=== PATIENT | male | born 1965 | race Two or more races ===

== ENCOUNTER → 2018-03-20 | Day surgery (SDC) | payer OTHER | END | disposition home or self-care (01) | LOC: JRADIR 09:50 | PROC: 02PY03Z Removal of Infusion Device from Great Vessel, Open Approach (ICD-10-PCS; principal; 2018-03-20) | DX: Z45.2 Encounter for adjustment and management of vascular access device (principal) | CPT/HCPCS: 36590 ==

== ENCOUNTER 2018-03-22 10:00 | Emergency (ER) | payer OTHER ==
[2018-03-22 10:40] VITALS: BMI 35.9
--- NOTE | 2018-03-22 10:56 | PDOC ---
Attending Attestation - HPI HPI: 03/22/18 11:40 The patient is a 52 year old male with a significant PMH of lymphoma in remission (s/p last chemo in 2014) and med port removal from right chest (on ) who presents to the emergency department with a rash on the upper chest and right forearm since yesterday. The rash is described as sudden onset and pruritic. Patient endorses minimal relief after drinking milk. The patient denies chest pain, shortness of breath, headache and dizziness. Denies fever, chills, nausea, vomit, diarrhea and constipation. Denies dysuria, frequency, urgency and hematuria. Allergies: NKA Past surgical history: None reported Social history: No reported alcohol, drug, or cigarette use. PCP: Dr. Nolasco <Kirsten Guajardo - Last Filed: 03/22/18 11:40> - Resident Resident Name: Gopi Mendoza - ED Attending Attestation I have performed the following: I have examined & evaluated the patient, The case was reviewed & discussed with the resident, I agree w/resident's findings & plan, Exceptions are as noted - Physicial Exam PE: GENERAL: Awake, alert, and fully oriented, in no acute distress HEAD: No signs of trauma EYES: PERRLA, EOMI, sclera anicteric, conjunctiva clear ENT: Auricles normal inspection, hearing grossly normal, nares patent, oropharynx clear without exudates. Moist mucosa NECK: Normal ROM, supple, no lymphadenopathy, JVD, or masses LUNGS: Breath sounds equal, clear to auscultation bilaterally. No wheezes, and no crackles HEART: Regular rate and rhythm, normal S1 and S2, no murmurs, rubs or gallops ABDOMEN: Soft, nontender, normoactive bowel sounds. No guarding, no rebound. No masses EXTREMITIES: Normal range of motion, no edema. No clubbing or cyanosis. No cords, erythema, or tenderness NEUROLOGICAL: Cranial nerves II through XII grossly intact. Normal speech, normal gait SKIN: Warm, Dry, normal turgor. +Papular rash to mid-chest and RUE. No induration. Surgical site to R upper chest with steristrips intact, no drainage. - Medical Decision Making 03/22/18 11:43 Rash is consistent with contact dermatitis, possibly from skin prep for removal of port? Unclear. Will treat with topical hydrocortisone and PO antihistamines. <Jaylyn Lawrence - Last Filed: 03/22/18 11:44>
--- NOTE | 2018-03-22 10:56 | PDOC ---
History of Present Illness - General Chief Complaint: Rash Stated Complaint: ALLERGIC RXN Time Seen by Provider: 03/22/18 10:49 - History of Present Illness Initial Comments: 52 year old male with history of lymphoma (in remission s/p last chemo dose in 2014) and recent med port removal from right chest (01/18/18) presenting with pruritic rash across the top of his chest and right forearm. He states that this rash started yesterday afternoon suddenly and has been very pruritic since. He has achieved some relief and resolution of the rash by drinking milk. Denies fevers, chills, nausea, vomiting, diarrhea, drainage from the site, or other sick symptoms. He follows with Dr. Nolasco for his PCP needs. 03/22/18 11:04 Past History - Past Medical History Allergies/Adverse Reactions: Allergies Allergy/AdvReac Type Severity Reaction Status Date / Time No Known Allergies Allergy Verified 03/22/18 10:29 Home Medications: Ambulatory Orders Diphenhydramine HCl [Benadryl -] 25 mg PO Q8H PRN #21 capsule 03/22/18 Hydrocortisone 1% Cream [Hytone 1% Cream -] 1 applic TP DAILY #1 tube 03/22/18 Cancer: Yes (LIVER,STOMACH-IN REMISSION AFTER CHEMO) COPD: No - Immunization History Immunization Up to Date: No - Suicide/Smoking/Psychosocial Hx Smoking History: Never smoked Have you smoked in the past 12 months: No Number of Cigarettes Smoked Daily: 1 'Breaking Loose' booklet given: 03/05/14 Hx Alcohol Use: No Drug/Substance Use Hx: No Substance Use Type: None Review of Systems - Review of Systems Constitutional: No: Chills, Diaphoresis, Fever, Loss of Appetite HEENTM: No: Eye Pain, Blurred Vision, Tearing, Cataracts Respiratory: No: Cough, Orthopnea, Shortness of Breath Cardiac (ROS): No: Chest Pain, Edema, Irregular Heart Rate ABD/GI: No: Diarrhea, Nausea, Vomiting : No: Dysuria, Discharge, Frequency Musculoskeletal: No: Gout, Joint Pain, Joint Swelling Integumentary: Yes: Lesions, Pruritus, Rash. No: Pallor Neurological: No: Headache, Numbness, Tingling, Tremors *Physical Exam - Vital Signs Last Vital Signs Temp Pulse Resp BP Pulse Ox 98.6 F 77 18 123/73 99 03/22/18 10:26 03/22/18 10:26 03/22/18 10:26 03/22/18 10:26 03/22/18 10:26 - Physical Exam General Appearance: Yes: Nourished, Appropriately Dressed. No: Apparent Distress HEENT: positive: EOMI, CARLOS, Normal ENT Inspection, Normal Voice Neck: positive: Trachea midline, Normal Thyroid, Supple. negative: Tender, Rigid Respiratory/Chest: positive: Lungs Clear, Normal Breath Sounds, Other (rash over superior central chest). negative: Chest Tender, Respiratory Distress, Accessory Muscle Use Cardiovascular: positive: Regular Rhythm, Regular Rate Gastrointestinal/Abdominal: positive: Normal Bowel Sounds, Flat, Soft. negative : Tender Lymphatic: negative: Adenopathy, Tenderness Musculoskeletal: positive: Normal Inspection. negative: Decreased Range of Motion Extremity: positive: Normal Capillary Refill, Normal Inspection, Normal Range of Motion. negative: Tender Integumentary: positive: Normal Color, Dry, Warm, Erythema, Rash Neurologic: positive: Fully Oriented, Alert, Normal Mood/Affect, Normal Response , Motor Strength 5/5 Medical Decision Making - Medical Decision Making 52 year old male with known tape allergy presenting with papular, pruritic rash concerning for dermatitis across the center of his chest and anterior right forearm. States that his rash has improved since he started ingesting more milk. This rash may have origins in some adhesive, chemical, or plant allergy from his catheter removal preparation or work exposure. Will send home with hydrocortisone and Benadryl prescription. 03/22/18 11:42 *DC/Admit/Observation/Transfer Diagnosis at time of Disposition: Contact dermatitis Qualifiers: Contact dermatitis type: unspecified Contact dermatitis trigger: unspecified trigger Qualified Code(s): L25.9 - Unspecified contact dermatitis, unspecified cause - Discharge Dispostion Disposition: HOME Condition at time of disposition: Improved Decision to Admit order: No - Prescriptions Prescriptions: Diphenhydramine HCl [Benadryl -] 25 mg PO Q8H PRN #21 capsule PRN Reason: For Itching Hydrocortisone 1% Cream [Hytone 1% Cream -] 1 applic TP DAILY #1 tube - Referrals Referrals: Artem Will MD [Primary Care Provider] - - Patient Instructions Printed Discharge Instructions: DI for Contact Dermatitis Additional Instructions: Your rash is probably dude to something that you came into contact with. Please use the steroid cream on the areas of the rash once per day for the next week. Please use the Benadryl as needed for any itching that you experience if the steroid cream does not help. Please do not use any heavy equipment or drive after taking the Benadryl. Please follow up with Dr. Will early next week and return to the ED if you have any new or worsening symptoms. - Post Discharge Activity
[2018-03-22 11:55] VITALS: BP 116/71; PULSE 69; TEMP 97.9
== END 2018-03-22 11:55 | disposition home or self-care (01) ==
LOC: JER 10:00
DX: L25.9 Unspecified contact dermatitis, unspecified cause (principal)
CPT/HCPCS: 99282-25

== ENCOUNTER 2019-06-16 10:06 | Emergency (ER) | payer OTHER ==
[2019-06-16 10:12] VITALS: BP 117/79; PULSE 76; TEMP 98.3; BMI 34.9
[2019-06-16] MEDS ORDERED: DEXAMETHASONE SOD PHOSPHATE 10 MG/1 ML VIAL IM ONE (10:25)
[2019-06-16] MEDS ORDERED: DEXAMETHASONE SOD PHOSPHATE 10 MG/1 ML VIAL ONE (10:25)
[2019-06-16] MEDS ORDERED: diphenhydrAMINE HCL 25 MG CAPSULE (FP) PO ONE ×2 (10:25→10:27)
--- NOTE | 2019-06-16 10:33 | PDOC ---
History of Present Illness - General Chief Complaint: Rash Stated Complaint: RASH Time Seen by Provider: 06/16/19 10:17 History Source: Patient Exam Limitations: Clinical Condition - History of Present Illness Initial Comments: 06/16/19 10:39 Patient with history of lymphoma in remission 5 years ago present with complaint of whole-body rash and itching upon wake this morning of unknown etiology. Patient report was having diarrhea symptoms with he took over-the- counter medication yesterday. Patient reported taking Pepto-Bismol and Maalox yesterday but does not know what caused his rash. Denies choking sensation, shortness of breath, lip or tongue swelling. 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) COPD: No - Immunization History Immunization Up to Date: No - Suicide/Smoking/Psychosocial Hx Smoking History: Never smoked Have you smoked in the past 12 months: No Number of Cigarettes Smoked Daily: 1 'Breaking Loose' booklet given: 03/05/14 Hx Alcohol Use: No Drug/Substance Use Hx: No Substance Use Type: None Review of Systems - Review of Systems Able to Perform ROS?: Yes Is the patient limited Macedonian proficient: No Constitutional: No: Diaphoresis, Fever, Malaise HEENTM: No: Symptoms Reported, See HPI, Eye Pain, Blurred Vision, Tearing, Recent change in vision, Double Vision, Cataracts, Ear Pain, Ocular Prothesis, Ear Discharge, Nose Pain, Nose Congestion, Tinnitus, Nose Bleeding, Hearing Loss , Throat Pain, Throat Swelling, Mouth Pain, Dental Problems, Difficulty Swallowing, Mouth Swelling, Other Respiratory: No: Symptoms reported, See HPI, Cough, Orthopnea, Shortness of Breath, SOB with Exertion, SOB at Rest, Stridor, Wheezing, Productive cough, Hemoptysis, Other Cardiac (ROS): No: Symptoms Reported, See HPI, Chest Pain, Edema, Irregular Heart Rate, Lightheadedness, Palpitations, Syncope, Chest Tightness, Other ABD/GI: No: Nausea, Vomiting Integumentary: Yes: Symptoms Reported, See HPI, Pruritus (all over the body), Rash (hives all over the body) Neurological: No: Symptoms reported All Other Systems: Reviewed and Negative *Physical Exam - Vital Signs Last Vital Signs Temp Pulse Resp BP Pulse Ox 98.3 F 76 18 117/79 99 06/16/19 10:09 06/16/19 10:09 06/16/19 10:09 06/16/19 10:09 06/16/19 10:09 - Physical Exam Comments: 06/16/19 10:28 GENERAL: Well developed, well nourished. Awake and alert. No acute distress. HEENT: Normocephalic, atraumatic. PERRLA, EOMI. No conjunctival pallor. Sclera are non-icteric. Moist mucous membranes. Oropharynx is clear. NECK: Supple. Full ROM. CARDIOVASCULAR: Regular rate and rhythm. No murmurs, rubs, or gallops. Distal pulses are 2+ and symmetric. PULMONARY: No evidence of respiratory distress. Lungs clear to auscultation bilaterally. No wheezing, rales or rhonchi. MUSCULOSKELETAL Normal range of motion at all joints. SKIN: Warm and dry. Normal capillary refill. diffused multiple urticarial rash to b/l upper extremities, torso and LE w/o excoriations NEUROLOGICAL: Alert, awake, appropriate. Gait is normal without ataxia. PSYCHIATRIC: Cooperative. Good eye contact. Appropriate mood General Appearance: Yes: Nourished, Appropriately Dressed. No: Apparent Distress Medical Decision Making - Medical Decision Making 06/16/19 10:41 Patient with history of lymphoma in remission 5 years ago present with complaint of whole-body rash and itching upon wake this morning of unknown etiology. Patient report was having diarrhea symptoms with he took over-the- counter medication yesterday. Patient reported taking Pepto-Bismol and Maalox yesterday but does not know what caused his rash. Denies choking sensation, shortness of breath, lip or tongue swelling. Denies any other symptoms Exam significant for multiple urticarial rash to bilateral upper and lower extremity and torso without excoriations. Oropharynx patent. Patient in no acute distress. Symptoms likely ALLERGIC dermatitis. Decadron 10 mg IM and Benadryl 50 mg by mouth given for ALLERGIC reaction. Patient be discharged home on 3 day course of prednisone by mouth and Pepcid for antihistamine effect with dermatology follow-up *DC/Admit/Observation/Transfer Diagnosis at time of Disposition: Contact dermatitis Qualifiers: Contact dermatitis type: allergic Contact dermatitis trigger: unspecified trigger Qualified Code(s): L23.9 - Allergic contact dermatitis, unspecified cause - Discharge Dispostion Disposition: HOME Condition at time of disposition: Stable Decision to Admit order: No - Prescriptions Prescriptions: Famotidine [Pepcid -] 20 mg PO BID 5 Days #10 tablet predniSONE [Deltasone -] 20 mg PO BID 3 Days #6 tablet - Referrals Referrals: Terrie Handy MD [Staff Physician] - - Patient Instructions Printed Discharge Instructions: DI for Hives Additional Instructions: Take medications as prescribed. Follow-up with referred life care planner if symptoms persist for more than 3 days. Come back to ER if shortness of breathe, chocking sensation, lip or tongue swelling - Post Discharge Activity
== END 2019-06-16 10:38 | disposition home or self-care (01) ==
LOC: JERFT 10:06
PROC: 3E0233Z Introduction of Anti-inflammatory into Muscle, Percutaneous Approach (ICD-10-PCS; principal; 2019-06-16)
DX: L23.9 Allergic contact dermatitis, unspecified cause (principal)
CPT/HCPCS: 96372; 99281-25; J1100

== ENCOUNTER 2019-09-16 07:46 | Day surgery (SDC) | payer OTHER ==
[2019-09-14 12:01] VITALS: BMI 32.8
--- NOTE | 2019-09-16 08:09 | OP ---
Operative Note - Note: Operative Date: 09/16/19 Pre-Operative Diagnosis: Left ankle fracture Operation: Left ankle ORIF Post-Operative Diagnosis: Same as Pre-op Surgeon: Paramjit Anguiano Equipment Maint Tech: Eula Ordonez Anesthesia: General Operative Report Dictated: Yes
[2019-09-16] MEDS ORDERED: ceFAZolin SODIUM 1 GM VIAL ONE (08:42)
[2019-09-16] MEDS ORDERED: PROPOFOL 20 ML ONE (08:42)
[2019-09-16] MEDS ORDERED: DEXAMETHASONE SOD PHOSPHATE 4 MG/1 ML VIAL ONE ×2 (08:42→11:27)
[2019-09-16] MEDS ORDERED: SODIUM CHLORIDE 0.9% P/F 10 ML VIAL IJ ONE (08:42)
[2019-09-16] MEDS ORDERED: MIDAZOLAM HCL 2 MG/2 ML SINGLE DOSE VIAL ONE (09:15)
[2019-09-16] MEDS ORDERED: DEXAMETHASONE SOD PHOSPHATE/PF 10 MG/ML SDV ONE (09:15)
[2019-09-16] MEDS ORDERED: BUPIVACAINE HCL/PF 0.5% (5 MG/ML) 30 ML VIAL IJ ONE (09:16)
[2019-09-16] MEDS ORDERED: KETOROLAC TROMETHAMINE 30 MG/1 ML VIAL ONE (11:27)
[2019-09-16] MEDS ORDERED: ONDANSETRON 4 MG/2 ML VIAL ONE (11:27)
[2019-09-16 14:13] VITALS: TEMP 97.6
[2019-09-16 15:23] VITALS: BP 110/62; PULSE 72
--- NOTE | 2019-10-16 18:57 | OP ---
DATE OF OPERATION: 09/16/2019 PREOPERATIVE DIAGNOSIS: Left unstable ankle fracture. POSTOPERATIVE DIAGNOSIS: Left unstable ankle fracture. PROCEDURE: Left ankle open reduction and internal fixation. SURGEON: Paramjit Ordaz MD GROUND WOOD SUPERVISOR: BHARATH Denis ANESTHESIA: General. POSTOPERATIVE CONDITION: Stable. COMPLICATIONS: None. IMPLANTS: Arthrex distal fibular plate with 2.7 and 3.5-mm cortical and locking screws. INDICATIONS: This is a pleasant 54-year-old gentleman who suffered an unstable type ankle fracture. Treatment options were discussed, including nonoperative versus operative management. Operative care was highly suggested. Operative risks were reviewed in detail, including bleeding, infection, neurovascular injury, need for further surgery, postoperative pain and stiffness, nonunion, malunion, hardware failure. We discussed medical risks such as heart attack, stroke, DVT, PE, and . I reviewed the use of perioperative antibiotic and DVT prophylaxis. I addressed all the patient's questions and concerns. He voiced understanding and elected to proceed. PROCEDURE: The patient was brought to the operating room, where general anesthetic was administered. The left lower extremity was then prepped and draped in the usual sterile fashion. A preoperative dose of antibiotics was given and the usual timeout procedure was performed. An incision was now planned out over the distal fibula. The left ankle was marked out with an incision. The incision was now carried through skin to subcutaneous tissue. Blunt spreading was used to expose the fracture site. A periosteal elevator was used to elevate the periosteum both anteriorly and posteriorly. The fracture site was now cleaned out of any soft callus. A fracture reduction clamp was now placed across the fracture site. It was brought into anatomic reduction. A lag screw was now drilled in the anterior to posterior direction and inserted, securing the fracture reduction. The clamp was then removed. Neutralization plate was now chosen. The plate placement and the previous reduction were evaluated fluoroscopically and both were satisfactory. The plate was now affixed to the bone utilizing a combination of nonlocking and locking screws to provide good fixation. After inserting all the screws, fracture reduction and hardware placement were again evaluated both visually and fluoroscopically. Both were satisfactory. The wound was now copiously irrigated. The fascia was closed using 0 Vicryl. The skin was closed using subcutaneously 2-0 Vicryl. The skin was then closed using 3-0 nylon. Sterile dressings were placed. The patient was placed into a short leg cast, which was then bivalved. He was extubated and transferred to the recovery room in stable condition. PARAMJIT ORDAZ M.D. [id number]
== END 2019-09-16 15:28 | disposition home or self-care (01) ==
LOC: FASU 07:46
PROVIDERS: ATTEND Orthopaedic Surgery Sports Medicine
PROC: 0QSK04Z Reposition Left Fibula with Internal Fixation Device, Open Approach (ICD-10-PCS; principal; 2019-09-16 11:16)
DX: S82.62XA Displaced fracture of lateral malleolus of left fibula, initial encounter for closed fracture (principal); X58.XXXA Exposure to other specified factors, initial encounter; Y93.9 Activity, unspecified; Y92.9 Unspecified place or not applicable
CPT/HCPCS: 27792; C1713; 73610-TC-LT-FY; 76000-TC-FY

== ENCOUNTER 2024-05-11 06:07 | Day surgery (SDC) | payer OTHER ==
[2024-05-07 13:21] VITALS: BMI 34.7
[2024-05-11 12:57] VITALS: RESP 18; TEMP 97.9
[2024-05-11 13:28] VITALS: BP 115/72; PULSE 59
== END 2024-05-11 13:28 | disposition home or self-care (01) ==
LOC: JASU-ENDO 06:07
PROVIDERS: ATTEND Internal Medicine Gastroenterology
PROC: 0DB78ZX Excision of Stomach, Pylorus, Via Natural or Artificial Opening Endoscopic, Diagnostic (ICD-10-PCS; 2024-05-11)
PROC: 0DB68ZX Excision of Stomach, Via Natural or Artificial Opening Endoscopic, Diagnostic (ICD-10-PCS; 2024-05-11)
PROC: 0DB98ZX Excision of Duodenum, Via Natural or Artificial Opening Endoscopic, Diagnostic (ICD-10-PCS; principal; 2024-05-11 11:00)
DX: K29.50 Unspecified chronic gastritis without bleeding (principal); K31.7 Polyp of stomach and duodenum; K21.00 Gastro-esophageal reflux disease with esophagitis, without bleeding
CPT/HCPCS: 88305-TC; 88342-TC